=== PATIENT | female | born 1940 | race Caucasian/White ===

== ENCOUNTER 2016-08-19 18:10 | Inpatient (IN) | payer MEDICARE, MEDICAID ==
[2016-08-19] MEDS ORDERED: Sodium Chloride 0.9% 1,000 ML IV SCH ×2 (19:30→22:00)
--- NOTE | 2016-08-19 21:02 | EDM.PDOC ---
ED HPI GENERAL MEDICAL PROBLEM - General Chief Complaint: General Stated Complaint: FELL; HIT HEAD Time Seen by Provider: 08/19/16 18:40 Source of Information: Reports: Patient, Family History Limitations: Reports: Altered Mental Status, Other (pt has been quite comnfused. ) - History of Present Illness INITIAL COMMENTS - FREE TEXT/NARRATIVE: pt arrived because she has had increased confusion. According to her she has fallen twice today. She has not eaten or drank today. Onset: Gradual Duration: Week(s): Location: Reports: Head, Other (pt hit the back of his head, ) Associated Symptoms: Reports: Other (pt has severe pain in the left leg. ) Left Lower Leg Pain Score (Numeric/FACES): 6 - Related Data Allergies Allergy/AdvReac Type Severity Reaction Status Date / Time atropine Allergy Severe dyspnea Verified 10/06/15 11:49 Penicillins Allergy Mild Rash Verified 10/06/15 11:49 clindamycin AdvReac Nausea and Verified 10/06/15 13:50 Vomiting erythromycin base AdvReac Nausea Verified 10/06/15 13:50 Home Meds: Home Meds Aspirin/Calcium Carbonate/Mag [Aspirin Buffered 325 mg Tab] 325 mg PO DAILY [History] Cholecalciferol (Vitamin D3) [Vitamin D] 4,000 unit PO DAILY 01/27/13 [History] Estrogens, Conjugated [Premarin Vaginal Crm] 2 gram VAG ASDIRECTED 01/27/13 [ History] Loperamide [Imodium] 2 mg PO QID PRN 01/27/13 [History] Omeprazole [Omeprazole] 20 mg PO BID 01/27/13 [History] Diltiazem [Dilacor XR] 120 mg PO DAILY 06/20/13 [History] Diphenoxylate HCl/Atropine [Lomotil Tablet] 1 each PO QID 06/20/13 [History] Betamethasone Dipropionate [Diprosone 0.05% Crm] 1 applic TOP DAILY 10/02/15 [ History] Calcipotriene [Dovonex 0.005% Crm] 1 applic TP DAILY 10/02/15 [History] Cyanocobalamin (Vitamin B-12) [Cyanocobalamin Injection] 1,000 mcg IM Q30D 10/01 [History] Lisinopril 15 mg PO DAILY 10/02/15 [History] Pediatric Multivit Comb No.76 [Flintstones Complete] 1 each PO DAILY 10/02/15 [ History] Acetaminophen/Pyrilam/Pamabrom [Pamprin Multi-Symptom] 1 each PO DAILY 08/19/16 [History] Baclofen 10 mg PO TID 08/19/16 [History] Past Medical History HEENT History: Reports: Allergic Rhinitis, Glaucoma, Impaired Vision Cardiovascular History: Reports: Hypertension, Other (See Below) Other Cardiovascular History: "enlarged heart" Respiratory History: Reports: Asthma, Bronchitis, Recurrent Gastrointestinal History: Reports: Bowel Obstruction, Cholelithiasis, Gastritis , GERD, GI Bleed, PUD Genitourinary History: Reports: UTI, Recurrent 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: Neurological History: Reports: Concussion, Migraines Endocrine/Metabolic History: Reports: Vitamin D Deficiency Hematologic History: Reports: B12 Deficiency, Iron Deficiency, Other (See Below) Other Hematologic History: ferritin low Dermatologic History: Reports: Psoriasis, Other (See Below) Other Dermatologic History: right leg swells - Infectious Disease History Infectious Disease History: Reports: Chicken Pox, Influenza, Measles, Mumps, Pertussis (Whooping Cough), Scarlet Fever, Shingles - Past Surgical History Head Surgeries/Procedures: Reports: None HEENT Surgical History: Reports: Oral Surgery, Tonsillectomy GI Surgical History: Reports: Cholecystectomy, EGD, Small Bowel, Other (See Below) Neurological Surgical History: Reports: None Musculoskeletal Surgical History: Reports: Arthroscopic Procedure Social & Family History - Family History Family Medical History: Noncontributory - Tobacco Use Smoking Status *Q: Former Smoker Years of Tobacco use: 0 Packs/Tins Daily: 0 Used Tobacco, but Quit: No Month Tobacco Last Used: 09/2015 Second Hand Smoke Exposure: No - Caffeine Use Caffeine Use: Reports: Coffee - Alcohol Use Days Per Week of Alcohol Use: 0 - Recreational Drug Use Recreational Drug Use: No ED ROS GENERAL - Review of Systems Review Of Systems: See Below Constitutional: Reports: No Symptoms HEENT: Reports: No Symptoms Respiratory: Reports: No Symptoms Cardiovascular: Reports: No Symptoms Endocrine: Reports: No Symptoms GI/Abdominal: Reports: No Symptoms : Reports: No Symptoms, Other (pt has not been eating and drinking normally. ) Musculoskeletal: Reports: Other (pain in the left knee. ) Skin: Reports: No Symptoms ED EXAM, GENERAL - Physical Exam Exam: See Below Free Text/Narrative:: pt is confused and does not appear to be safe at home. She has fallen twice today at the apartment. She lives alone and her family does not feel she is safe at home. She states she is having alot of pain in the left knee area. She feels like this is what i making her fall. She has not been eating or drinking normally. Exam Limited By: No Limitations General Appearance: Alert, Mild Distress Ears: Normal TMs Nose: Normal Inspection Throat/Mouth: Normal Inspection Head: Atraumatic Neck: Normal Inspection Respiratory/Chest: No Respiratory Distress Cardiovascular: Regular Rate, Rhythm GI/Abdominal: Soft, Non-Tender (Female) Exam: Deferred Rectal (Female) Exam: Deferred Back Exam: Normal Inspection Extremities: Normal Inspection Neurological: Alert, Oriented, Normal Cognition Psychiatric: Anxious Course - Vital Signs Last Recorded V/S: Last Vital Signs Temp 36.5 C 08/19/16 18:46 Pulse 71 08/19/16 18:46 Resp 14 08/19/16 18:46 BP 175/97 H 08/19/16 18:46 Pulse Ox 96 08/19/16 18:46 - Orders/Labs/Meds Orders: Active Orders 24 hr Category Date Time Status Head wo Cont [CT] Stat Exams 08/19/16 19:21 Taken Sodium Chloride 0.9% [Normal Saline] 1,000 ml Med 08/19/16 19:30 Active IV ASDIRECTED Sodium Chloride 0.9% [Normal Saline] 1,000 ml Med 08/19/16 22:00 Ordered IV ASDIRECTED Medication Orders Sodium Chloride (Normal Saline) 1,000 mls @ 999 mls/hr IV ASDIRECTED DELICIA Last Admin: 08/19/16 19:59 Dose: 999 mls/hr Sodium Chloride (Normal Saline) 1,000 mls @ 999 mls/hr IV ASDIRECTED DELICIA Labs: Laboratory Tests 08/19/16 08/19/16 08/19/16 Range/Units 18:39 18:39 19:23 WBC 9.8 (4.5-11.0) K/uL RBC 5.36 (3.30-5.50) M/uL Hgb 16.9 H (12.0-15.0) g/dL Hct 48.0 (36.0-48.0) % MCV 90 (80-98) fL MCH 32 H (27-31) pg MCHC 35 (32-36) % Plt Count 237 (150-400) K/uL Neut % (Auto) 57 (36-66) % Lymph % (Auto) 28 (24-44) % [place] % (Auto) 10 H (2-6) % Eos % (Auto) 3 (2-4) % Baso % (Auto) 2 H (0-1) % Sodium 138 L (140-148) mmol/L Potassium 4.3 (3.6-5.2) mmol/L Chloride 104 (100-108) mmol/L Carbon Dioxide 23 (21-32) mmol/L Anion Gap 15.3 H (5.0-14.0) mmol/L BUN 31 H D (7-18) mg/dL Creatinine 1.0 (0.6-1.0) mg/dL Est Cr Clr Drug Dosing 40.81 mL/min Estimated GFR (MDRD) 54 L (>60) Glucose 95 (74-106) mg/dL Calcium 8.8 (8.5-10.1) mg/dL Total Bilirubin 0.7 D (0.2-1.0) mg/dL AST 55 H D (15-37) U/L ALT 29 (12-78) U/L Alkaline Phosphatase 98 (46-116) U/L Total Protein 7.3 (6.4-8.2) g/dL Albumin 4.0 (3.4-5.0) g/dL Globulin 3.3 (2.3-3.5) g/dL Albumin/Globulin Ratio 1.2 (1.2-2.2) Urine Color Urine Appearance Urine pH (4.5-8.0) Ur Specific Belk (1.008-1.030) Urine Protein (NEGATIVE) mg/dL Urine Glucose (UA) (NEGATIVE) mg/dL Urine Ketones (NEGATIVE) mg/dL Urine Occult Blood (NEGATIVE) Urine Nitrite (NEGATIVE) Urine Bilirubin (NEGATIVE) Urine Urobilinogen (NORMAL) mg/dL Ur Leukocyte Esterase (NEGATIVE) Urine RBC (0-5) Urine WBC (0-5) Ur Epithelial Cells Amorphous Sediment Urine Bacteria Urine Mucus Urine Other Phenytoin 0.3 L (10.0-20.0) ug/mL 06/14/17 Range/Units 21:05 WBC (4.5-11.0) K/uL RBC (3.30-5.50) M/uL Hgb (12.0-15.0) g/dL Hct (36.0-48.0) % MCV (80-98) fL MCH (27-31) pg MCHC (32-36) % Plt Count (150-400) K/uL Neut % (Auto) (36-66) % Lymph % (Auto) (24-44) % Bradley % (Auto) (2-6) % Eos % (Auto) (2-4) % Baso % (Auto) (0-1) % Sodium (140-148) mmol/L Potassium (3.6-5.2) mmol/L Chloride (100-108) mmol/L Carbon Dioxide (21-32) mmol/L Anion Gap (5.0-14.0) mmol/L BUN (7-18) mg/dL Creatinine (0.6-1.0) mg/dL Est Cr Clr Drug Dosing mL/min Estimated GFR (MDRD) (>60) Glucose (74-106) mg/dL Calcium (8.5-10.1) mg/dL Total Bilirubin (0.2-1.0) mg/dL AST (15-37) U/L ALT (12-78) U/L Alkaline Phosphatase (46-116) U/L Total Protein (6.4-8.2) g/dL Albumin (3.4-5.0) g/dL Globulin (2.3-3.5) g/dL Albumin/Globulin Ratio (1.2-2.2) Urine Color Yellow Urine Appearance Slightly cloudy Urine pH 5.0 (4.5-8.0) Ur Specific [place] 1.020 (1.008-1.030) Urine Protein Negative (NEGATIVE) mg/dL Urine Glucose (UA) Normal (NEGATIVE) mg/dL Urine Ketones Negative (NEGATIVE) mg/dL Urine Occult Blood Negative (NEGATIVE) Urine Nitrite Negative (NEGATIVE) Urine Bilirubin Negative (NEGATIVE) Urine Urobilinogen Normal (NORMAL) mg/dL Ur Leukocyte Esterase Moderate (NEGATIVE) Urine RBC 0-5 (0-5) Urine WBC 5-10 H (0-5) Ur Epithelial Cells Few Amorphous Sediment Not seen Urine Bacteria Moderate Urine Mucus Few Urine Other Phenytoin (10.0-20.0) ug/mL Meds: Medications Generic Name Dose Route Start Last Admin Trade Name Abraham PRN Reason Stop Dose Admin Sodium Chloride 1,000 mls @ 999 mls/hr 08/19/16 19:30 08/19/16 19:59 Normal Saline IV 999 mls/hr ASDIRECTED DELICIA Administration Sodium Chloride 1,000 mls @ 999 mls/hr 08/19/16 22:00 Normal Saline IV ASDIRECTED DELICIA - Re-Assessments/Exams Free Text/Narrative Re-Assessment/Exam: 08/19/16 22:00 pt had a cat scan of the head which was neg. She is dehydrated, Her urine looks infected. She continues not to make sense. Departure - Departure Time of Disposition: 22:02 Disposition: Admitted As Inpatient 68 Condition: Fair Clinical Impression: Confusion, Falling, Dehydration, UTI (urinary tract infection) - Discharge Information Forms: ED Department Discharge Care Plan Goals: admit to [facility] - My Orders Last 24 Hours: My Active Orders 08/19/16 19:21 Head wo Cont [CT] Stat 08/19/16 19:30 Sodium Chloride 0.9% [Normal Saline] 1,000 ml IV ASDIRECTED 08/19/16 22:00 Sodium Chloride 0.9% [Normal Saline] 1,000 ml IV ASDIRECTED - Assessment/Plan Last 24 Hours: My Active Orders 08/19/16 19:21 Head wo Cont [CT] Stat 08/19/16 19:30 Sodium Chloride 0.9% [Normal Saline] 1,000 ml IV ASDIRECTED 08/19/16 22:00 Sodium Chloride 0.9% [Normal Saline] 1,000 ml IV ASDIRECTED
[2016-08-20] MEDS ORDERED: cefTRIAXone 1 GM in Sodium Chloride 0.9% 50 ML IV SCH ×2
[2016-08-20] MEDS ORDERED: Docusate Sodium 100 MG Cap PO PRN (00:20)
[2016-08-20] MEDS ORDERED: Ondansetron 4 MG/2 ML SDV IV PRN (00:20)
[2016-08-20] MEDS ORDERED: Morphine 2 MG/ML Syringe IVPUSH PRN (00:20)
[2016-08-20] MEDS ORDERED: Zolpidem 5 MG Tab PO PRN (00:20)
[2016-08-20] MEDS ORDERED: oxyCODONE 5 MG Tab PO PRN (00:20)
[2016-08-20] MEDS ORDERED: Ondansetron 4 MG Tab.DIS PO PRN (00:20)
[2016-08-20] MEDS ORDERED: Acetaminophen 325 MG Tab PO PRN (00:20)
[2016-08-20] MEDS ORDERED: Albuterol 0.083% 2.5 MG/3 ML Neb Soln NEB PRN (00:20)
[2016-08-20] MEDS ORDERED: LORazepam 2 MG/ML MDV IV PRN (00:20)
[2016-08-20] MEDS: Sodium Chloride 0.9% 1,000 ML IV SCH ×2 (01:09→09:35)
[2016-08-20] MEDS ORDERED: Diltiazem 120 MG Cap.CD PO ONE (01:35)
--- NOTE | 2016-08-20 08:01 | PCM.HP ---
H&P History of Present Illness - General Date of Service: 08/19/16 Admit Problem/Dx: Admission Diagnosis/Problem Admission Diagnosis/Problem Dehydration Source of Information: Patient History Limitations: Reports: Altered Mental Status - History of Present Illness Initial Comments - Free Text/Narative: pt arrived because she has had increased confusion. According to her she has fallen twice today. She has not eaten or drank today. Onset: Gradual Duration: Week(s): Location: Reports: Head, Other (pt hit the back of his head, ) Associated Symptoms: Reports: Other (pt has severe pain in the left leg. ) Left Lower Leg Pain Score (Numeric/FACES): 6 pt had a cat scan of the head which was neg. She is dehydrated, Her urine looks infected. She continues not to make sense. pt is confused and does not appear to be safe at home. She has fallen twice today at the apartment. She lives alone and her family does not feel she is safe at home. She states she is having alot of pain in the left knee area. She feels like this is what i making her fall. She has not been eating or drinking normally. Exam Limited By: No Limitations General Appearance: Alert, Mild Distress plan to admit for further care. Onset of Symptoms: Reports: Gradual Duration of Symptoms: Reports: Day(s): Location: Reports: Generalized Improves with: Reports: None Worsens with: Reports: None Associated Symptoms: Reports: Confusion, Nausea/Vomiting, Weakness Left Lower Leg Pain Score (Numeric/FACES): 3 - Related Data Allergies/Adverse Reactions: Allergies Allergy/AdvReac Type Severity Reaction Status Date / Time atropine Allergy Severe dyspnea Verified 10/06/15 11:49 Penicillins Allergy Mild Rash Verified 10/06/15 11:49 clindamycin AdvReac Nausea and Verified 10/06/15 13:50 Vomiting erythromycin base AdvReac Nausea Verified 10/06/15 13:50 Home Medications: Home Meds Aspirin/Calcium Carbonate/Mag [Aspirin Buffered 325 mg Tab] 325 mg PO DAILY [History] Cholecalciferol (Vitamin D3) [Vitamin D] 4,000 unit PO DAILY 01/27/13 [History] Estrogens, Conjugated [Premarin Vaginal Crm] 2 gram VAG ASDIRECTED 01/27/13 [ History] Loperamide [Imodium] 2 mg PO QID PRN 01/27/13 [History] Omeprazole [Omeprazole] 20 mg PO BID 01/27/13 [History] Diltiazem [Dilacor XR] 120 mg PO DAILY 06/20/13 [History] Diphenoxylate HCl/Atropine [Lomotil Tablet] 1 each PO QID 06/20/13 [History] Betamethasone Dipropionate [Diprosone 0.05% Crm] 1 applic TOP DAILY 10/02/15 [ History] Calcipotriene [Dovonex 0.005% Crm] 1 applic TP DAILY 10/02/15 [History] Cyanocobalamin (Vitamin B-12) [Cyanocobalamin Injection] 1,000 mcg IM Q30D 10/01 [History] Lisinopril 15 mg PO DAILY 10/02/15 [History] Pediatric Multivit Comb No.76 [Flintstones Complete] 1 each PO DAILY 10/02/15 [ History] Acetaminophen/Pyrilam/Pamabrom [Pamprin Multi-Symptom] 1 each PO DAILY 08/19/16 [History] Baclofen 10 mg PO TID 08/19/16 [History] Past Medical History HEENT History: Reports: Allergic Rhinitis, Glaucoma, Impaired Vision Cardiovascular History: Reports: Hypertension, Other (See Below) Other Cardiovascular History: "enlarged heart" Respiratory History: Reports: Asthma, Bronchitis, Recurrent Gastrointestinal History: Reports: Bowel Obstruction, Cholelithiasis, Gastritis , GERD, GI Bleed, PUD Genitourinary History: Reports: UTI, Recurrent 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: Neurological History: Reports: Concussion, Migraines Endocrine/Metabolic History: Reports: Vitamin D Deficiency Hematologic History: Reports: B12 Deficiency, Iron Deficiency, Other (See Below) Other Hematologic History: ferritin low Dermatologic History: Reports: Psoriasis, Other (See Below) Other Dermatologic History: right leg swells - Infectious Disease History Infectious Disease History: Reports: Chicken Pox, Influenza, Measles, Mumps, Pertussis (Whooping Cough), Scarlet Fever, Shingles - Past Surgical History Head Surgeries/Procedures: Reports: None HEENT Surgical History: Reports: Oral Surgery, Tonsillectomy GI Surgical History: Reports: Cholecystectomy, EGD, Small Bowel, Other (See Below) Neurological Surgical History: Reports: None Musculoskeletal Surgical History: Reports: Arthroscopic Procedure Social & Family History - Family History Family Medical History: Noncontributory - Tobacco Use Smoking Status *Q: Former Smoker Years of Tobacco use: 0 Packs/Tins Daily: 0 Used Tobacco, but Quit: No Month Tobacco Last Used: 09/2015 Second Hand Smoke Exposure: No - Caffeine Use Caffeine Use: Reports: Coffee - Alcohol Use Days Per Week of Alcohol Use: 0 - Recreational Drug Use Recreational Drug Use: No H&P Review of Systems - Review of Systems: Review Of Systems: See Below Free Text/Narrative: Mrs. Anderson given history, but it off topics and rambling. very agitated and restless. General: Reports: Other (multi complaints; head, abdomen, left leg, skin, nails , lack of eating.) HEENT: Reports: Other (dry mouth) Pulmonary: Reports: No Symptoms Cardiovascular: Reports: No Symptoms Gastrointestinal: Reports: Abdominal Pain, Constipation, Diarrhea, Decreased Appetite, Difficulty Swallowing (due to dry mouth), Nausea Genitourinary: Reports: No Symptoms Musculoskeletal: Reports: Leg Pain (left leg pain for months) Skin: Reports: Dryness, Change in Hair/Nails Psychiatric: Reports: Confusion, Anxiety, Agitation Neurological: Reports: Confusion Hematologic/Lymphatic: Reports: No Symptoms Immunologic: Reports: No Symptoms Exam - Exam Exam: See Below - Vital Signs Vital Signs: Last Vital Signs Temp 36.7 C 08/20/16 05:37 Pulse 66 08/20/16 05:37 Resp 16 08/20/16 05:37 BP 127/90 08/20/16 05:37 Pulse Ox 95 08/20/16 05:37 Weight: 55.849 kg - Exam General: Cooperative, Moderate Distress (confusion), Other (Mrs. Anderson is noted to be alert, confused, agitation, rambling topics) HEENT: PERRLA, Conjunctiva Clear, EACs Clear, EOMI, Hearing Intact, Mucosa Moist & Biehle, Nares Patent, Posterior Pharynx Clear, Pupils Equal, Pupils Reactive, TMs Clear, Other (natural teeth present) Neck: Supple, Trachea Midline Lungs: Clear to Auscultation, Normal Respiratory Effort Cardiovascular: Regular Rate, Regular Rhythm, Normal S1, Normal S2 Abdomen: Normal Bowel Sounds, Tenderness (low pelvis) (Female) Exam: Deferred Rectal (Female) Exam: Deferred Back Exam: Normal Inspection, Full Range of Motion Extremities: Normal Inspection, Normal Pulses. No: Calf Tenderness, Edema Peripheral Pulses: 2+: Radial (L), Radial (R) Neurological: Reflexes Equal Bilateral, Strength Equal Bilateral Neuro Extensive - Mental Status: Alert (rambling topics, restless), Other Neuro Extensive - Motor, Sensory, Reflexes: Normal Gait, Normal Reflexes Psychiatric: Alert, Anxious, Agitated - Patient Data Lab Results Last 24 hrs: Laboratory Results - last 24 hr 08/20/16 08/20/16 Range/Units 05:00 05:00 WBC 7.4 (4.5-11.0) K/uL RBC 4.84 (3.30-5.50) M/uL Hgb 15.4 H (12.0-15.0) g/dL Hct 43.3 (36.0-48.0) % MCV 90 (80-98) fL MCH 32 H (27-31) pg MCHC 36 (32-36) % Plt Count 188 (150-400) K/uL Neut % (Auto) 54 (36-66) % Lymph % (Auto) 30 (24-44) % [place] % (Auto) 10 H (2-6) % Eos % (Auto) 5 H (2-4) % Baso % (Auto) 2 H (0-1) % Sodium 143 (140-148) mmol/L Potassium 3.5 L (3.6-5.2) mmol/L Chloride 111 H (100-108) mmol/L Carbon Dioxide 23 (21-32) mmol/L Anion Gap 12.5 (5.0-14.0) mmol/L BUN 17 (7-18) mg/dL Creatinine 0.6 (0.6-1.0) mg/dL Est Cr Clr Drug Dosing 71.03 mL/min Estimated GFR (MDRD) > 60 (>60) Glucose 79 (74-106) mg/dL Calcium 8.0 L (8.5-10.1) mg/dL Result Diagrams: 08/20/16 05:00 08/20/16 05:00 *Q Meaningful Use (ADM) - VTE *Q VTE Criteria *Q: - Stroke *Q Stroke Criteria *Q: - AMI *Q AMI Criteria *Q: - Problem List (1) Confusion SNOMED Code(s): 481791540 ICD Code: R41.0 - DISORIENTATION, UNSPECIFIED Status: Acute Priority: High Current Visit: Yes (2) Dehydration SNOMED Code(s): 19791810 ICD Code: E86.0 - DEHYDRATION Status: Acute Priority: High Current Visit: Yes (3) UTI (urinary tract infection) SNOMED Code(s): 24907434 ICD Code: N39.0 - URINARY TRACT INFECTION, SITE NOT SPECIFIED Status: Acute Priority: High Current Visit: Yes Qualifiers: Urinary tract infection type: site unspecified Hematuria presence: without hematuria Qualified Code(s): N39.0 - Urinary tract infection, site not specified (4) Hypertension SNOMED Code(s): 57037238 ICD Code: I10 - ESSENTIAL (PRIMARY) HYPERTENSION Status: Chronic Current Visit: No Qualifiers: Hypertension type: essential hypertension Qualified Code(s): I10 - Essential (primary) hypertension Problem List Initiated/Reviewed/Updated: Yes Orders Last 24hrs: Active Orders 24 hr Category Date Time Status Patient Status [ADT] Routine ADT 08/20/16 00:20 Active Bedrest Bathroom Privileges [RC] ASDIRECTED Care 08/20/16 00:20 Active Intake and Output [RC] QSHIFT Care 08/20/16 00:20 Active Notify Provider Vital Signs [RC] ASDIRECTED Care 08/20/16 00:20 Active Oxygen Therapy [RC] PRN Care 08/20/16 00:20 Active RT Aerosol Therapy [RC] ASDIRECTED Care 08/20/16 00:20 Active VTE/DVT Education [RC] Per Unit Routine Care 08/20/16 00:20 Active Vital Signs [RC] Q4H Care 08/20/16 00:20 Active OT Evaluation and Treatment [CONS] Routine Cons 08/20/16 00:20 Active PT Evaluation and Treatment [CONS] Routine Cons 08/20/16 00:20 Active Regular Diet [DIET] Diet 08/20/16 Breakfast Active Acetaminophen [Tylenol] Med 08/20/16 00:20 Active 650 mg PO Q4H PRN Albuterol [Proventil Neb Soln] Med 08/20/16 00:20 Active 2.5 mg NEB Q4H PRN Baclofen [Lioresal] Med 08/20/16 09:00 Active 10 mg PO TID Diltiazem [Cardizem CD] Med 08/20/16 09:00 Active 120 mg PO DAILY Docusate Sodium [Colace] Med 08/20/16 00:20 Active 100 mg PO BID PRN Ibuprofen [Motrin] Med 08/20/16 00:20 Active 400 mg PO Q6H PRN LORazepam [Ativan] Med 08/20/16 00:20 Active See Dose Instructions IV Q4H PRN Lisinopril [Prinivil] Med 08/20/16 09:00 Active 15 mg PO DAILY Morphine Med 08/20/16 00:20 Active 2 mg IVPUSH Q2H PRN Ondansetron [Zofran ODT] Med 08/20/16 00:20 Active 4 mg PO Q6H PRN Ondansetron [Zofran] Med 08/20/16 00:20 Active 4 mg IV Q4H PRN Pantoprazole [ProTONIX IV] Med 08/20/16 09:00 Active 40 mg IVPUSH DAILY Sodium Chloride 0.9% [Normal Saline] 1,000 ml Med 08/20/16 00:20 Active IV ASDIRECTED Zolpidem [Ambien] Med 08/20/16 00:20 Active 5 mg PO BEDTIME PRN cefTRIAXone [Rocephin] 1 gm Med 08/20/16 00:00 Active Sodium Chloride 0.9% [Normal Saline] 50 ml IV Q24H oxyCODONE Med 08/20/16 00:20 Active 5 mg PO Q4H PRN Sequential Compression Device [OM.PC] Per Unit Routine Oth 08/20/16 00:20 Ordered Resuscitation Status Routine Resus Stat 08/20/16 00:02 Ordered Medication Orders Acetaminophen (Tylenol) 650 mg PO Q4H PRN PRN Reason: Pain (Mild 1-3)/fever Albuterol (Proventil Neb Soln) 2.5 mg NEB Q4H PRN PRN Reason: Shortness Of Breath/wheezing Baclofen (Lioresal) 10 mg PO TID DELICIA Diltiazem HCl (Cardizem Cd) 120 mg PO DAILY DELICIA Docusate Sodium (Colace) 100 mg PO BID PRN PRN Reason: Constipation Sodium Chloride (Normal Saline) 1,000 mls @ 125 mls/hr IV ASDIRECTED DELICIA Last Admin: 08/20/16 01:09 Dose: 125 mls/hr Ceftriaxone Sodium 1 gm/ (Sodium Chloride) 50 mls @ 100 mls/hr IV Q24H [facility] Last Admin: 08/20/16 01:10 Dose: 100 mls/hr Ibuprofen (Motrin) 400 mg PO Q6H PRN PRN Reason: Pain (mild 1-3) Lisinopril 10 mg/ Lisinopril 5 (mg) 15 mg PO DAILY DELICIA Lorazepam (Ativan) 0 mg IV Q4H PRN PRN Reason: Agitation Morphine Sulfate (Morphine) 2 mg IVPUSH Q2H PRN PRN Reason: Pain (severe 7-10) Ondansetron HCl (Zofran Odt) 4 mg PO Q6H PRN PRN Reason: Nausea able to take PO Ondansetron HCl (Zofran) 4 mg IV Q4H PRN PRN Reason: Nausea/Vomiting Oxycodone HCl (Oxycodone) 5 mg PO Q4H PRN PRN Reason: Pain (moderate 4-6) Pantoprazole Sodium (Protonix Iv) 40 mg IVPUSH DAILY [facility] Zolpidem Tartrate (Ambien) 5 mg PO BEDTIME PRN PRN Reason: Sleep Assessment/Plan Comment:: ASSESSMENT / PLAN -This is a 76 year old female present to ER with friends who report concerns of confusion, report "she just not right, worried for her". Mrs Anderson reports had not been feeling well for a long time, she doesn't feel like eating anymore and hasn't ate or drank anything today. In ER she had labs; which show UTI, dehydration , Head CT is negative. She was given IV fluids, but she continues to be confused, rambling topics, anxious and agitation. ER MD recommends Hospital admission for IV fluids, medication and monitor to evaluate if confusion resolves. Plan Urinary Tract Infection with confusion, dehydration -Admit to [address] [place] [address] for further monitoring -IV Fluids for rehydration NS at 125 mL per hour -IV Antibiotic; Rocephin 1 Gram every 24 hours -medication order for Ativan 0.5 to 1 mg IV prn agitation -Advise to notify nurses of any chest pain or other symptoms -blood cultures x2 pending -And a.m. labs: CBC, BMP, lactic acid Hypertension -elevated blood pressure on admission, advise to give Cardizem 120mg po now -continue blood pressure in am as scheduled. Maintenance issues -Orders home meds: -Nutrition: Regular diet -Jay catheter not indicated at this time -DVT: SCD -PPI; IV Protonix 40mg daily CODE STATUS: Full Admission status: Admit to [address] [place] [address] Admission justification. This patient will be admitted for inpatient services and is medically appropriate meeting medical necessity for inpatient admission as outlined in my documentation. I reasonably expect the patient will require inpatient services that span. Time over 2 midnights. I reasonably expect this patient to be discharged or transferred within 96 hours after [facility]. Disposition; home Primary care provider: Dr. Campbell Hospitalist: Dr. Marquez
[2016-08-20] MEDS: Diltiazem 120 MG Cap.CD PO SCH ×2 (08:30→13:40)
[2016-08-20] MEDS: Baclofen 10 MG Tab PO SCH ×4 (08:30→21:48)
[2016-08-20] MEDS ORDERED: Pantoprazole 40 MG Vial IVPUSH SCH (09:00)
[2016-08-20] MEDS ORDERED: Lisinopril 10 MG Tab PO SCH (09:00)
[2016-08-20] MEDS ORDERED: Potassium Chloride 20 MEQ Tab.ER PO ONE (09:15)
[2016-08-20] MEDS ORDERED: Haloperidol 1 MG Tab PO PRN (12:37)
--- NOTE | 2016-08-20 12:37 | PCM.PN ---
- General Info Date of Service: 08/20/16 Functional Status: Reports: tolerating diet, urinating - Review of Systems General: Reports: Weakness. Denies: Fever, Chills Pulmonary: Reports: no symptoms Cardiovascular: Reports: No Symptoms Gastrointestinal: Reports: No symptoms Genitourinary: Reports: no symptoms Systems Review Comment:: Ms. Anderson is a 76-year-old woman who was admitted through the emergency department last night with progressive weakness and confusion secondary to urinary tract infection. Since admission she has been afebrile and hemodynamically stable with no evidence of underlying sepsis. She is somewhat confused I suspect at baseline does have some underlying dementia. - Patient Data Vitals - most recent: Last Vital Signs Temp 98.2 F 08/20/16 11:39 Pulse 79 08/20/16 11:39 Resp 16 08/20/16 11:39 BP 142/87 H 08/20/16 11:39 Pulse Ox 95 08/20/16 11:39 Weight - most recent: 123 lb 2 oz I&O - last 24 hours: Intake & Output 08/19/16 08/20/16 08/20/16 22:59 06:59 14:59 Intake Total 551 240 Output Total 675 1950 Balance -124 -1710 Lab Results last 24 hrs: Laboratory Results - last 24 hr 08/20/16 08/20/16 Range/Units 05:00 05:00 WBC 7.4 (4.5-11.0) K/uL RBC 4.84 (3.30-5.50) M/uL Hgb 15.4 H (12.0-15.0) g/dL Hct 43.3 (36.0-48.0) % MCV 90 (80-98) fL MCH 32 H (27-31) pg MCHC 36 (32-36) % Plt Count 188 (150-400) K/uL Neut % (Auto) 54 (36-66) % Lymph % (Auto) 30 (24-44) % Chaves % (Auto) 10 H (2-6) % Eos % (Auto) 5 H (2-4) % Baso % (Auto) 2 H (0-1) % Sodium 143 (140-148) mmol/L Potassium 3.5 L (3.6-5.2) mmol/L Chloride 111 H (100-108) mmol/L Carbon Dioxide 23 (21-32) mmol/L Anion Gap 12.5 (5.0-14.0) mmol/L BUN 17 (7-18) mg/dL Creatinine 0.6 (0.6-1.0) mg/dL Est Cr Clr Drug Dosing 71.03 mL/min Estimated GFR (MDRD) > 60 (>60) Glucose 79 (74-106) mg/dL Calcium 8.0 L (8.5-10.1) mg/dL Med Orders - Current: Current Medications Acetaminophen (Tylenol) 650 mg PO Q4H PRN PRN Reason: Pain (Mild 1-3)/fever Albuterol (Proventil Neb Soln) 2.5 mg NEB Q4H PRN PRN Reason: Shortness Of Breath/wheezing Baclofen (Lioresal) 10 mg PO TID [facility] Last Admin: 08/20/16 12:11 Dose: Not Given Clotrimazole (Clotrimazole 1%) 0 gm VAG BEDTIME [facility] Diltiazem HCl (Cardizem Cd) 120 mg PO DAILY [facility] Docusate Sodium (Colace) 100 mg PO BID PRN PRN Reason: Constipation Ceftriaxone Sodium 1 gm/ (Sodium Chloride) 50 mls @ 100 mls/hr IV Q24H [facility] Last Admin: 08/20/16 01:10 Dose: 100 mls/hr Ibuprofen (Motrin) 400 mg PO Q6H PRN PRN Reason: Pain (mild 1-3) Lisinopril 10 mg/ Lisinopril 5 (mg) 15 mg PO DAILY [facility] Lorazepam (Ativan) 0 mg IV Q4H PRN PRN Reason: Agitation Melatonin (Melatonin) 9 mg PO BEDTIME [facility] Morphine Sulfate (Morphine) 2 mg IVPUSH Q2H PRN PRN Reason: Pain (severe 7-10) Ondansetron HCl (Zofran Odt) 4 mg PO Q6H PRN PRN Reason: Nausea able to take PO Ondansetron HCl (Zofran) 4 mg IV Q4H PRN PRN Reason: Nausea/Vomiting Oxycodone HCl (Oxycodone) 5 mg PO Q4H PRN PRN Reason: Pain (moderate 4-6) Pantoprazole Sodium (Protonix) 40 mg PO ACBREAKFAST [facility] Zolpidem Tartrate (Ambien) 5 mg PO BEDTIME PRN PRN Reason: Sleep Discontinued Medications Diltiazem HCl (Cardizem Cd) 120 mg PO ONETIME ONE Stop: 08/20/16 01:36 Last Admin: 08/20/16 02:12 Dose: 120 mg Sodium Chloride (Normal Saline) 1,000 mls @ 999 mls/hr IV ASDIRECTED [facility] Last Admin: 08/19/16 19:59 Dose: 999 mls/hr Sodium Chloride (Normal Saline) 1,000 mls @ 999 mls/hr IV ASDIRECTED [facility] Last Admin: 08/19/16 22:51 Dose: 999 mls/hr Sodium Chloride (Normal Saline) 1,000 mls @ 125 mls/hr IV ASDIRECTED [facility] Last Admin: 08/20/16 09:35 Dose: 125 mls/hr Pantoprazole Sodium (Protonix Iv) 40 mg IVPUSH DAILY [facility] Last Admin: 08/20/16 08:31 Dose: 40 mg Potassium Chloride (Klor-Con M20) 40 meq PO ONETIME ONE Stop: 08/20/16 09:16 Last Admin: 08/20/16 09:36 Dose: 40 meq - Exam Quality Assessment: supplemental oxygen, DVT prophylaxis General: alert, cooperative, no acute distress Lungs: Clear to auscultation, Normal respiratory effort Cardiovascular: Regular Rate, Regular Rhythm, No Murmurs Abdomen: bowel sounds present, soft, no tenderness, no distension Extremities: no edema Skin: warm, dry, intact - Problem List Review Problem List Initiated/Reviewed/Updated: Yes - My Orders Last 24 Hours: My Active Orders 08/20/16 12:31 Convert IV to Saline Lock [OM.PC] Routine 08/20/16 21:00 Clotrimazole [Clotrimazole 1%] See Dose Instructions VAG BEDTIME Melatonin 9 mg PO BEDTIME 08/21/16 05:00 BASIC METABOLIC PANEL,BMP [CHEM] Timed 08/21/16 07:30 Pantoprazole [ProTONIX] 40 mg PO ACBREAKFAST - Plan Plan:: ASSESSMENT / PLAN Confusion-history of increased confusion over the past week likely secondary to her underlying urinary tract infection, question as to whether she may have some baseline dementia. -Discontinue lorazepam -Melatonin 9 mg by mouth daily at bedtime -Depakote 250 mg by mouth twice a day -Haldol 1 mg by mouth every 2 hours as needed for agitation Urinary Tract Infection with confusion, dehydration -Saline lock IV -IV Antibiotic; Rocephin 1 Gram every 24 hours -Advise to notify nurses of any chest pain or other symptoms -blood cultures x2 pending -And a.m. labs: CBC, BMP, lactic acid -Physical therapy and occupational therapy consults Hypertension-blood pressure stable since admission -Continue to monitor during hospital stay Maintenance issues -Orders home meds: -Nutrition: Regular diet -Jay catheter not indicated at this time -DVT: SCD -PPI; not required CODE STATUS: Full Admission status: Admit to [address] [place] [address] Admission justification. This patient will be admitted for inpatient services and is medically appropriate meeting medical necessity for inpatient admission as outlined in my documentation. I reasonably expect the patient will require inpatient services that span. Time over 2 midnights. I reasonably expect this patient to be discharged or transferred within 96 hours after admission to the [facility]. Disposition; home Primary care provider: Dr. Campbell Hospitalist: Dr. Marquez
[2016-08-20] MEDS ORDERED: Diltiazem 120 MG Cap.CD PO SCH (13:19)
[2016-08-20] MEDS: Lisinopril 10 MG Tab PO SCH ×2 (13:37→21:48)
[2016-08-20] MEDS: Diltiazem IR 30 MG Tab PO SCH ×2 (13:53→21:48)
[2016-08-20] MEDS: Divalproex Sodium Delayed-Release 250 MG Tab.CR PO SCH (16:31)
[2016-08-20] MEDS ORDERED: cefTRIAXone 1 GM, Lidocaine 1% 2.1 ML IM ONE ×2 (21:00)
[2016-08-20] MEDS: Melatonin 3 MG Tab PO SCH (21:48)
[2016-08-20] MEDS: Clotrimazole 1% Vaginal Crm 45 GM Tube VAG SCH (21:48)
[2016-08-21] MEDS ORDERED: cefTRIAXone 1 GM Vial IM ONE
[2016-08-21] MEDS: Diltiazem IR 30 MG Tab PO SCH ×4 (02:32→20:13)
[2016-08-21] MEDS ORDERED: Pantoprazole 40 MG Tab.CR PO SCH (07:30)
[2016-08-21] MEDS: Divalproex Sodium Delayed-Release 250 MG Tab.CR PO SCH ×2 (07:52→16:20)
[2016-08-21] MEDS: Ibuprofen 400 MG Tab PO PRN (09:11)
[2016-08-21] MEDS: Lisinopril 10 MG Tab PO SCH ×2 (09:12→20:16)
[2016-08-21] MEDS: Baclofen 10 MG Tab PO SCH ×3 (09:13→20:15)
--- NOTE | 2016-08-21 18:13 | PCM.PN ---
- General Info Date of Service: 08/21/16 Functional Status: Reports: tolerating diet, ambulating, urinating - Review of Systems General: Reports: Weakness. Denies: Fever, Chills Pulmonary: Reports: no symptoms Cardiovascular: Reports: No Symptoms Gastrointestinal: Reports: No symptoms Systems Review Comment:: This patient has been stable since yesterday although she does remain mildly confused at times. Vital signs have been good and she has been afebrile. Urine culture growing out mixed ab so antibiotic therapy will be discontinued. - Patient Data Vitals - most recent: Last Vital Signs Temp 97.6 F 08/21/16 14:56 Pulse 65 08/21/16 14:56 Resp 16 08/21/16 14:56 BP 146/90 H 08/21/16 14:56 Pulse Ox 97 08/21/16 14:56 Weight - most recent: 123 lb 2 oz I&O - last 24 hours: Intake & Output 08/21/16 08/21/16 08/21/16 06:59 14:59 22:59 Intake Total 1080 1320 Output Total 450 Balance 630 1320 Lab Results last 24 hrs: Laboratory Results - last 24 hr 08/21/16 Range/Units 05:53 Sodium 143 (140-148) mmol/L Potassium 4.5 (3.6-5.2) mmol/L Chloride 108 (100-108) mmol/L Carbon Dioxide 24 (21-32) mmol/L Anion Gap 10.8 (5.0-14.0) mmol/L BUN 15 (7-18) mg/dL Creatinine 0.7 (0.6-1.0) mg/dL Est Cr Clr Drug Dosing 61.33 mL/min Estimated GFR (MDRD) > 60 (>60) Glucose 91 (74-106) mg/dL Calcium 8.7 (8.5-10.1) mg/dL Med Orders - Current: Current Medications Acetaminophen (Tylenol) 650 mg PO Q4H PRN PRN Reason: Pain (Mild 1-3)/fever Albuterol (Proventil Neb Soln) 2.5 mg NEB Q4H PRN PRN Reason: Shortness Of Breath/wheezing Baclofen (Lioresal) 10 mg PO TID [facility] Last Admin: 08/21/16 13:56 Dose: Not Given Clotrimazole (Clotrimazole 1%) 0 gm VAG BEDTIME [facility] Last Admin: 08/20/16 21:48 Dose: 1 applicful Diltiazem HCl (Cardizem) 30 mg PO Q6H [facility] Last Admin: 08/21/16 13:56 Dose: 30 mg Divalproex Sodium (Divalproex Sodium) 250 mg PO BIDMEALS [facility] Last Admin: 08/21/16 16:20 Dose: 250 mg Docusate Sodium (Colace) 100 mg PO BID PRN PRN Reason: Constipation Haloperidol (Haldol) 1 mg PO Q2H PRN PRN Reason: Agitation Ibuprofen (Motrin) 400 mg PO Q6H PRN PRN Reason: Pain (mild 1-3) Last Admin: 08/21/16 09:11 Dose: 400 mg Lisinopril (Prinivil) 10 mg PO BID [facility] Last Admin: 08/21/16 09:12 Dose: 10 mg Melatonin (Melatonin) 9 mg PO BEDTIME [facility] Last Admin: 08/20/16 21:48 Dose: 9 mg Morphine Sulfate (Morphine) 2 mg IVPUSH Q2H PRN PRN Reason: Pain (severe 7-10) Ondansetron HCl (Zofran Odt) 4 mg PO Q6H PRN PRN Reason: Nausea able to take PO Ondansetron HCl (Zofran) 4 mg IV Q4H PRN PRN Reason: Nausea/Vomiting Oxycodone HCl (Oxycodone) 5 mg PO Q4H PRN PRN Reason: Pain (moderate 4-6) Zolpidem Tartrate (Ambien) 5 mg PO BEDTIME PRN PRN Reason: Sleep Discontinued Medications Ceftriaxone Sodium 1 gm/ (Lidocaine HCl 2.1 ml) 0 gm IM ONETIME ONE Stop: 08/20/16 21:01 Last Admin: 08/20/16 22:01 Dose: 1 inj Diltiazem HCl (Cardizem Cd) 120 mg PO DAILY [facility] Last Admin: 08/20/16 13:40 Dose: Not Given Diltiazem HCl (Cardizem Cd) 120 mg PO ONETIME ONE Stop: 08/20/16 01:36 Last Admin: 08/20/16 02:12 Dose: 120 mg Diltiazem HCl (Cardizem Cd) 60 mg PO BID [facility] Sodium Chloride (Normal Saline) 1,000 mls @ 999 mls/hr IV ASDIRECTED [facility] Last Admin: 08/19/16 19:59 Dose: 999 mls/hr Sodium Chloride (Normal Saline) 1,000 mls @ 999 mls/hr IV ASDIRECTED [facility] Last Admin: 08/19/16 22:51 Dose: 999 mls/hr Sodium Chloride (Normal Saline) 1,000 mls @ 125 mls/hr IV ASDIRECTED [facility] Last Admin: 08/20/16 09:35 Dose: 125 mls/hr Ceftriaxone Sodium 1 gm/ (Sodium Chloride) 50 mls @ 100 mls/hr IV Q24H [facility] Last Admin: 08/20/16 01:10 Dose: 100 mls/hr Lisinopril 10 mg/ Lisinopril 5 (mg) 15 mg PO DAILY [facility] Last Admin: 08/20/16 13:40 Dose: Not Given Lorazepam (Ativan) 0 mg IV Q4H PRN PRN Reason: Agitation Pantoprazole Sodium (Protonix Iv) 40 mg IVPUSH DAILY [facility] Last Admin: 08/20/16 08:31 Dose: 40 mg Pantoprazole Sodium (Protonix) 40 mg PO ACBREAKFAST [facility] Potassium Chloride (Klor-Con M20) 40 meq PO ONETIME ONE Stop: 08/20/16 09:16 Last Admin: 08/20/16 09:36 Dose: 40 meq - Exam General: alert, oriented, cooperative, no acute distress Lungs: Clear to auscultation, Normal respiratory effort Cardiovascular: Regular Rate, Regular Rhythm Abdomen: bowel sounds present, soft, no tenderness, no distension Extremities: no edema Skin: warm, dry, intact - Problem List Review Problem List Initiated/Reviewed/Updated: Yes - My Orders Last 24 Hours: My Active Orders 08/20/16 21:00 Clotrimazole [Clotrimazole 1%] See Dose Instructions VAG BEDTIME Melatonin 9 mg PO BEDTIME - Plan Plan:: ASSESSMENT / PLAN Confusion-She remains intermittently and mildly confused, likely has mild underlying dementia -Discontinue lorazepam -Melatonin 9 mg by mouth daily at bedtime -Depakote 250 mg by mouth twice a day -Haldol 1 mg by mouth every 2 hours as needed for agitation Urinary colonization with no evidence of underlying infection -Saline lock IV -Discontinue antibiotic therapy Hypertension-blood pressure stable since admission -Continue to monitor during hospital stay Maintenance issues -Orders home meds: -Nutrition: Regular diet -Jay catheter not indicated at this time -DVT: SCD -PPI; not required CODE STATUS: Full Admission status: Admit to [address] [place] [address] Admission justification. This patient will be admitted for inpatient services and is medically appropriate meeting medical necessity for inpatient admission as outlined in my documentation. I reasonably expect the patient will require inpatient services that span. Time over 2 midnights. I reasonably expect this patient to be discharged or transferred within 96 hours after admission to the [facility]. Disposition; anticipate discharge to home in a.m. Primary care provider: Dr. Campbell Hospitalist: Dr. Marquez
[2016-08-21] MEDS: Melatonin 3 MG Tab PO SCH (20:15)
[2016-08-21] MEDS: Clotrimazole 1% Vaginal Crm 45 GM Tube VAG SCH (21:26)
[2016-08-22] MEDS: Diltiazem IR 30 MG Tab PO SCH ×2 (01:32→07:26)
[2016-08-22] MEDS: Ibuprofen 400 MG Tab PO PRN (01:32)
[2016-08-22] MEDS: Divalproex Sodium Delayed-Release 250 MG Tab.CR PO SCH (07:26)
[2016-08-22] MEDS: Baclofen 10 MG Tab PO SCH (09:29)
[2016-08-22] MEDS: Lisinopril 10 MG Tab PO SCH (09:29)
[2016-08-22 11:57] VITALS: BP 162/93
--- NOTE | 2016-08-22 12:16 | PCM.DCSUM1 ---
Discharge Summary - Hospital Course Brief History: Ms. Anderson is a 76-year-old woman was admitted through the emergency department because of recurrent falls, weakness, and confusion. - Discharge Data Discharge Date: 08/22/16 Discharge Disposition: Home, W Home Health Agency 06 Condition: Fair - Discharge Diagnosis/Problem(s) (1) Confusion SNOMED Code(s): 677824413 ICD Code: R41.0 - DISORIENTATION, UNSPECIFIED Status: Acute Priority: High Current Visit: Yes (2) Falling SNOMED Code(s): 706678574 ICD Code: R29.6 - REPEATED FALLS Status: Acute Current Visit: Yes (3) Dehydration SNOMED Code(s): 84428150 ICD Code: E86.0 - DEHYDRATION Status: Acute Priority: High Current Visit: Yes - Patient Summary/Data Consults: Consultations 08/20/16 00:20 OT Evaluation and Treatment [CONS] Routine Please Evaluate and Treat. OT Reason for Consult: Discharge Planning This query below is only for informational purposes and is not editable. PT Evaluation and Treatment [CONS] Routine Please Evaluate and Treat. PT Reason for Consult: Other (Type Response) left leg pain This query below is only for informational purposes and is not editable. Hospital Course: Ms. Anderson is a 76-year-old woman whose been living independently in an apartment. She was noted by friends to be more week with recent falls and increasing confusion. On evaluation the emergency department CT scan of the head was unremarkable. Laboratory studies showed no obvious metabolic abnormalities. There was some question of possible urinary tract infection and initially on admission was started on antibiotics. Urine culture returned growing only mixed ab and antibiotic therapy was discontinued. She appeared to have some underlying cognitive impairment, consistent with mild dementia. Discussion was held concerning options for ongoing care and management. Patient was offered residential placement which she has refused at the present time but will except home care with home physical therapy and occupational therapy. Dehydration resolved with IV fluids on admission, she showed adequate ability to drink and eat during the rest of her hospital stay and there were no further concerns about her nutrition or hydration. Activity will be as tolerated and she will resume her usual diet. Follow-up appointment will be scheduled with Dr. Campbell within 1 week. - Patient Instructions Diet: Usual Diet as Tolerated Activity: As Tolerated Other/Special Instructions: Please arrange for home care with home physical therapy and occupational therapy. Please schedule follow-up appointment with Dr. Campbell within 1 week. - Discharge Plan Home Medications: Home Meds Cholecalciferol (Vitamin D3) [Vitamin D3] 4,000 unit PO DAILY 01/27/13 [History] Estrogens, Conjugated [Premarin Vaginal Crm] 2 gram VAG ASDIRECTED 01/27/13 [ History] Loperamide [Imodium] 4 mg PO QID PRN 01/27/13 [History] Omeprazole 20 mg PO BID 01/27/13 [History] Diphenoxylate HCl/Atropine [Lomotil] 1 each PO QID PRN 06/20/13 [History] Betamethasone Dipropionate [Diprosone 0.05% Crm] 1 applic TOP DAILY 10/02/15 [ History] Calcipotriene [Dovonex 0.005% Crm] 1 applic TP DAILY 10/02/15 [History] Lisinopril 10 mg PO BID 10/02/15 [History] Pediatric Multivit Comb No.76 [Flintstones Complete] 1 each PO DAILY 10/02/15 [ History] Baclofen 10 mg PO TID 08/19/16 [History] Aspirin 325 mg PO DAILY 08/20/16 [History] Cyclobenzaprine [Flexeril] 10 mg PO TID 08/20/16 [History] Diltiazem [Cardizem SR] 60 mg PO BID 08/20/16 [History] Folic Acid 1 mg PO DAILY 08/20/16 [History] Furosemide 20 mg PO DAILY 08/20/16 [History] Referrals: Donis Campbell MD [Primary Care Provider] - - Patient Data Vitals - Most Recent: Last Vital Signs Temp 98.1 F 08/22/16 11:55 Pulse 86 08/22/16 11:55 Resp 16 08/22/16 11:55 BP 162/93 H 08/22/16 11:55 Pulse Ox 100 08/22/16 11:55 Weight - Most Recent: 123 lb 2 oz I&O - Last 24 hours: Intake & Output 08/21/16 08/22/16 08/22/16 22:59 06:59 14:59 Intake Total 480 240 Balance 480 240 Med Orders - Current: Current Medications Acetaminophen (Tylenol) 650 mg PO Q4H PRN PRN Reason: Pain (Mild 1-3)/fever Albuterol (Proventil Neb Soln) 2.5 mg NEB Q4H PRN PRN Reason: Shortness Of Breath/wheezing Baclofen (Lioresal) 10 mg PO TID [facility] Last Admin: 08/22/16 09:29 Dose: Not Given Clotrimazole (Clotrimazole 1%) 0 gm VAG BEDTIME [facility] Last Admin: 08/21/16 21:26 Dose: 1 applicful Diltiazem HCl (Cardizem) 30 mg PO Q6H [facility] Last Admin: 08/22/16 07:26 Dose: 30 mg Divalproex Sodium (Divalproex Sodium) 250 mg PO BIDMEALS [facility] Last Admin: 08/22/16 07:26 Dose: 250 mg Docusate Sodium (Colace) 100 mg PO BID PRN PRN Reason: Constipation Haloperidol (Haldol) 1 mg PO Q2H PRN PRN Reason: Agitation Ibuprofen (Motrin) 400 mg PO Q6H PRN PRN Reason: Pain (mild 1-3) Last Admin: 08/22/16 01:32 Dose: 400 mg Lisinopril (Prinivil) 10 mg PO BID [facility] Last Admin: 08/22/16 09:29 Dose: 10 mg Melatonin (Melatonin) 9 mg PO BEDTIME [facility] Last Admin: 08/21/16 20:15 Dose: 9 mg Morphine Sulfate (Morphine) 2 mg IVPUSH Q2H PRN PRN Reason: Pain (severe 7-10) Ondansetron HCl (Zofran Odt) 4 mg PO Q6H PRN PRN Reason: Nausea able to take PO Ondansetron HCl (Zofran) 4 mg IV Q4H PRN PRN Reason: Nausea/Vomiting Oxycodone HCl (Oxycodone) 5 mg PO Q4H PRN PRN Reason: Pain (moderate 4-6) Zolpidem Tartrate (Ambien) 5 mg PO BEDTIME PRN PRN Reason: Sleep Discontinued Medications Ceftriaxone Sodium 1 gm/ (Lidocaine HCl 2.1 ml) 0 gm IM ONETIME ONE Stop: 08/20/16 21:01 Last Admin: 08/20/16 22:01 Dose: 1 inj Diltiazem HCl (Cardizem Cd) 120 mg PO DAILY [facility] Last Admin: 08/20/16 13:40 Dose: Not Given Diltiazem HCl (Cardizem Cd) 120 mg PO ONETIME ONE Stop: 08/20/16 01:36 Last Admin: 08/20/16 02:12 Dose: 120 mg Diltiazem HCl (Cardizem Cd) 60 mg PO BID [facility] Sodium Chloride (Normal Saline) 1,000 mls @ 999 mls/hr IV ASDIRECTED [facility] Last Admin: 08/19/16 19:59 Dose: 999 mls/hr Sodium Chloride (Normal Saline) 1,000 mls @ 999 mls/hr IV ASDIRECTED [facility] Last Admin: 08/19/16 22:51 Dose: 999 mls/hr Sodium Chloride (Normal Saline) 1,000 mls @ 125 mls/hr IV ASDIRECTED [facility] Last Admin: 08/20/16 09:35 Dose: 125 mls/hr Ceftriaxone Sodium 1 gm/ (Sodium Chloride) 50 mls @ 100 mls/hr IV Q24H [facility] Last Admin: 08/20/16 01:10 Dose: 100 mls/hr Lisinopril 10 mg/ Lisinopril 5 (mg) 15 mg PO DAILY [facility] Last Admin: 08/20/16 13:40 Dose: Not Given Lorazepam (Ativan) 0 mg IV Q4H PRN PRN Reason: Agitation Pantoprazole Sodium (Protonix Iv) 40 mg IVPUSH DAILY [facility] Last Admin: 08/20/16 08:31 Dose: 40 mg Pantoprazole Sodium (Protonix) 40 mg PO ACBREAKFAST [facility] Potassium Chloride (Klor-Con M20) 40 meq PO ONETIME ONE Stop: 08/20/16 09:16 Last Admin: 08/20/16 09:36 Dose: 40 meq *Q Meaningful Use (DIS) - VTE *Q VTE Criteria *Q: - Stroke *Q Stroke Criteria *Q: - AMI *Q AMI Criteria *Q:
== END 2016-08-22 13:15 | disposition home health service (06) | DRG 690 ==
LOC: JP.ED 18:10 → JP.MS 08-20 00:01
PROVIDERS: ADMIT Hospitalist; ATTEND Hospitalist
DX: N39.0 Urinary tract infection, site not specified (principal); R41.0 Disorientation, unspecified; E86.0 Dehydration; Z79.82 Long term (current) use of aspirin; I10 Essential (primary) hypertension; K21.9 Gastro-esophageal reflux disease without esophagitis; E61.1 Iron deficiency; Z87.891 Personal history of nicotine dependence; L40.9 Psoriasis, unspecified; R29.6 Repeated falls; Z91.81 History of falling; F03.90 Unspecified dementia, unspecified severity, without behavioral disturbance, psychotic disturbance, mood disturbance, and anxiety; M79.605 Pain in left leg; W18.30XA Fall on same level, unspecified, initial encounter; Y92.009 Unspecified place in unspecified non-institutional (private) residence as the place of occurrence of the external cause; S09.90XA Unspecified injury of head, initial encounter; H40.9 Unspecified glaucoma; H54.7 Unspecified visual loss; Z87.440 Personal history of urinary (tract) infections; Z88.1 Allergy status to other antibiotic agents; Z88.0 Allergy status to penicillin; Z88.8 Allergy status to other drugs, medicaments and biological substances
CPT/HCPCS: 36415; 70450; 80053; 80185; 81001; 85025; 87086; 96360; 96361; 99285; J7040 ×2; 80048; 97116-GP; 97140-GP; 97162-GP; 97165-GO; 97530-GP; 97535-GP; 99284; A9270-GY; C9113; J0696; J2060; J7050

== ENCOUNTER 2022-02-06 16:49 | Emergency (ER) | payer MEDICARE, MEDICAID ==
[2022-02-06] MEDS ORDERED: Lactated Ringers 1,000 ML IV ONE (17:18)
[2022-02-06 18:19] LABS: ESTIMATED GFR 51 mL/min (>60); TROPONIN I HIGH SENSITIVITY 9.4 pg/mL (<=60.3)
[2022-02-06 18:55] VITALS: BP 145/92; PULSE 80
[2022-02-06 19:05] LABS: CORONAVIRUS COVID-19 NAA NEGATIVE (NEGATIVE)
== END 2022-02-06 18:54 | disposition home or self-care (01) ==
LOC: JP.ED 16:49
DX: R19.7 Diarrhea, unspecified (principal); T50.905A Adverse effect of unspecified drugs, medicaments and biological substances, initial encounter; I10 Essential (primary) hypertension; K21.9 Gastro-esophageal reflux disease without esophagitis; F17.210 Nicotine dependence, cigarettes, uncomplicated; Z88.0 Allergy status to penicillin; Z88.7 Allergy status to serum and vaccine; Z88.1 Allergy status to other antibiotic agents; Z88.8 Allergy status to other drugs, medicaments and biological substances; Z79.82 Long term (current) use of aspirin; Z79.899 Other long term (current) drug therapy; Z20.822 Contact with and (suspected) exposure to COVID-19
CPT/HCPCS: 0241U; 36415; 80053; 83690; 84484; 85025; 96360; 99284; J7120

== ENCOUNTER 2023-01-21 20:57 | Emergency (ER) | payer MEDICARE, MEDICAID ==
[2023-01-21 21:26] LABS: BASOPHILS ABSOLUTE AUTO 0.07 K/uL (0.00-0.10); BASOPHILS PERCENT AUTO 0.5 % (0.1-1.3); EOSINOPHILS ABSOLUTE AUTO 0.12 K/uL (0.00-0.40); EOSINOPHILS PERCENT AUTO 0.9 % (0.0-5.4); HEMATOCRIT 45.5 % (34.3-46.0); HEMOGLOBIN 15.7 g/dL (11.2-15.5); IMMATURE GRAN ABSOLUTE AUTO 0.06 K/uL (0.00-0.23); IMMATURE GRAN PERCENT AUTO 0.5 % (0.0-0.7); LYMPHOCYTES ABSOLUTE AUTO 0.95 K/uL (0.8-3.3); LYMPHOCYTES PERCENT AUTO 7.4 % (11.4-47.7); MEAN CORPUSCULAR HGB CONC 34.5 g/dL (31.6-35.5); MEAN CORPUSCULAR VOLUME 89.9 fL (81.4-99.0); MONOCYTES ABSOLUTE AUTO 0.42 K/uL (0.20-0.90); MONOCYTES PERCENT AUTO 3.3 % (3.3-12.6); NEUTROPHILS PERCENT AUTO 87.4 % (40.0-78.1); PLATELET COUNT,PLT 217 K/uL (130-375); RED BLOOD CELL COUNT 5.06 M/uL (3.77-5.24); WHITE BLOOD CELL COUNT,WBC 12.9 K/uL (3.2-11.0)
[2023-01-21 21:55] LABS: ALANINE AMINOTRANSFERASE,ALT 15 U/L (12-78); ALBUMIN 3.7 g/dL (3.4-5.0); ALKALINE PHOSPHATASE 123 U/L (46-116); ANION GAP 16.9 mmol/L (5.0-14.0); ASPARTATE AMNIOTRANSFERASE,AST 39 U/L (15-37); BILIRUBIN TOTAL 0.6 mg/dL (0.2-1.0); BLOOD UREA NITROGEN,BUN 16 mg/dL (7-18); C-REACTIVE PROTEIN 0.17 mg/dL (0.0-0.3); CALCIUM 8.3 mg/dL (8.5-10.1); CARBON DIOXIDE,CO2 23 mmol/L (21-32); CHLORIDE,CL 96 mmol/L (100-108); EST CRCL DRUG DOSING (CG) 32.13 mL/min; ESTIMATED GFR 57 mL/min (>60); GLUCOSE RANDOM 200 mg/dL (74-106); POTASSIUM,K 3.9 mmol/L (3.6-5.2); PROTEIN TOTAL,TP 7.3 g/dL (6.4-8.2); SODIUM,NA 132 mmol/L (140-148)
[2023-01-21 21:56] LABS: MAGNESIUM 1.7 mg/dL (1.8-2.4); TROPONIN I HIGH SENSITIVITY 15.1 pg/mL (<=60.3)
[2023-01-21] MEDS ORDERED: Sodium Chloride 0.9% 1,000 ML IV ONE (22:08)
[2023-01-21] MEDS ORDERED: Ondansetron 4 MG/2 ML SDV IVPUSH ONE (22:09)
[2023-01-21] MEDS ORDERED: Sodium Chloride 0.9% 50 ML IV ONE (22:11)
[2023-01-21] MEDS ORDERED: Sodium Chloride 0.9% 10 ML Syringe FLUSH ONE (22:11)
[2023-01-21] MEDS ORDERED: Iopamidol 612 MG/ML 100 ML Bottle IV ONE (22:11)
[2023-01-21 22:19] LABS: APPEARANCE,URINE CLEAR (CLEAR); BILIRUBIN,URINE NEGATIVE (NEGATIVE); COLOR,URINE YELLOW (YELLOW); GLUCOSE,URINE NEGATIVE (NEGATIVE); KETONES,URINE NEGATIVE (NEGATIVE); LEUKOCYTE ESTERASE,URINE NEGATIVE (NEGATIVE); NITRITE,URINE NEGATIVE (NEGATIVE); OCCULT BLOOD,URINE TRACE-INTACT (NEGATIVE); PROTEIN,URINE >=300 mg/dL (NEGATIVE); UROBILINOGEN,URINE 0.2 EU/dL (0.2-1.0)
[2023-01-21 22:24] LABS: AMORPHOUS SEDIMENT,URINE NOT SEEN; BACTERIA,URINE FEW; EPITHELIAL CELLS,URINE RARE; MUCUS,URINE NOT SEEN; RBC,URINE 0-5 (0-5); WBC,URINE NOT SEEN (0-5)
[2023-01-21] MEDS ORDERED: Magnesium Oxide 400 MG Tab PO ONE (22:29)
[2023-01-21] MEDS ORDERED: Labetalol 20 MG/4 ML Syringe IVPUSH ONE (22:48)
[2023-01-21 23:12] VITALS: PULSE 94
[2023-01-22 00:14] VITALS: BP 168/101
== END 2023-01-22 00:28 | disposition home or self-care (01) ==
LOC: JP.ED 20:57
DX: K52.9 Noninfective gastroenteritis and colitis, unspecified (principal); I10 Essential (primary) hypertension; K21.9 Gastro-esophageal reflux disease without esophagitis; F17.210 Nicotine dependence, cigarettes, uncomplicated; J45.909 Unspecified asthma, uncomplicated; Z86.16 Personal history of COVID-19; Z79.899 Other long term (current) drug therapy; Z79.82 Long term (current) use of aspirin; Z88.1 Allergy status to other antibiotic agents; Z88.7 Allergy status to serum and vaccine; Z88.8 Allergy status to other drugs, medicaments and biological substances; Z88.0 Allergy status to penicillin; Z88.5 Allergy status to narcotic agent; Z88.6 Allergy status to analgesic agent
CPT/HCPCS: 36415; 74177; 80053; 81001; 83605; 83690; 83735; 84484; 85025; 86140; 93005; 93010; 96361; 96374; 96375; 99284; 99284-25; A9270-GY; J2405; J3490; J7030; Q9967

== ENCOUNTER 2023-05-30 20:53 | Inpatient (IN) | payer MEDICARE, MEDICAID ==
[2023-05-30] MEDS: Sodium Chloride 0.9% 1,000 ML IV SCH (21:00)
[2023-05-30] MEDS ORDERED: Naloxone 0.4 MG/ML SDV IVPUSH PRN (21:16)
[2023-05-30] MEDS: Morphine 2 MG/ML SYRINGE IVPUSH ONE (21:26)
[2023-05-30 21:46] LABS: BASE EXCESS VENOUS -4.7 mm/L; BICARBONATE,VENOUS 20.6 mmol/L; CARBOXYHEMOGLOBIN 1.8 % (0.0-1.6); METHEMOGLOBIN 0.9 %; O2 SATURATION VENOUS 70.7; OXYHEMOGLOBIN 68.8 %; PCO2 VENOUS 40.4 mm/Hg; PH,VENOUS 7.327 (7.350-7.450); PO2 VENOUS 43.7 mm/Hg; TOTAL HEMOGLOBIN 17.2 g/dL (12.0-16.0)
[2023-05-30 21:52] LABS: BILIRUBIN,URINE SMALL (NEGATIVE); GLUCOSE,URINE 250 mg/dL (NEGATIVE); KETONES,URINE NEGATIVE (NEGATIVE); LEUKOCYTE ESTERASE,URINE NEGATIVE (NEGATIVE); NITRITE,URINE NEGATIVE (NEGATIVE); OCCULT BLOOD,URINE LARGE (NEGATIVE); PH,URINE 5.5 (5.0-8.0); PROTEIN,URINE >=300 mg/dL (NEGATIVE); UROBILINOGEN,URINE 0.2 EU/dL (0.2-1.0)
[2023-05-30 21:55] LABS: BASOPHILS ABSOLUTE AUTO 0.03 K/uL (0.00-0.10); BASOPHILS PERCENT AUTO 0.1 % (0.1-1.3); HEMATOCRIT 52.5 % (34.3-46.0); HEMOGLOBIN 17.9 g/dL (11.2-15.5); IMMATURE GRAN ABSOLUTE AUTO 0.17 K/uL (0.00-0.23); IMMATURE GRAN PERCENT AUTO 0.8 % (0.0-0.7); LYMPHOCYTES ABSOLUTE AUTO 1.08 K/uL (0.8-3.3); LYMPHOCYTES PERCENT AUTO 4.9 % (11.4-47.7); MEAN CORPUSCULAR HEMOGLOBIN 30.1 pg (31.6-35.5); MEAN CORPUSCULAR HGB CONC 34.1 g/dL (31.6-35.5); MEAN CORPUSCULAR VOLUME 88.2 fL (81.4-99.0); MONOCYTES ABSOLUTE AUTO 1.43 K/uL (0.20-0.90); MONOCYTES PERCENT AUTO 6.5 % (3.3-12.6); NEUTROPHILS ABSOLUTE AUTO 19.43 K/uL (1.0-7.6); NEUTROPHILS PERCENT AUTO 87.7 % (40.0-78.1); PLATELET COUNT,PLT 271 K/uL (130-375); RED BLOOD CELL COUNT 5.95 M/uL (3.77-5.24); WHITE BLOOD CELL COUNT,WBC 22.1 K/uL (3.2-11.0)
[2023-05-30 22:00] LABS: INR 1.2; PROTHROMBIN TIME 11.6 sec (9.2-10.6)
[2023-05-30 22:00] LABS: APPEARANCE,URINE SLIGHTLY CLOUDY (CLEAR)
[2023-05-30 22:01] LABS: AMORPHOUS SEDIMENT,URINE FEW; BACTERIA,URINE MODERATE; COLOR,URINE OTHER (YELLOW); EPITHELIAL CELLS,URINE FEW; MUCUS,URINE FEW; RBC,URINE 0-5 (0-5)
[2023-05-30 22:17] LABS: A/G RATIO 0.8 (1.2-2.2); ALANINE AMINOTRANSFERASE,ALT 51 U/L (12-78); ALBUMIN 3.4 g/dL (3.4-5.0); ALKALINE PHOSPHATASE 140 U/L (46-116); ASPARTATE AMNIOTRANSFERASE,AST 143 U/L (15-37); BILIRUBIN TOTAL 0.6 mg/dL (0.2-1.0); BLOOD UREA NITROGEN,BUN 72 mg/dL (7-18); C-REACTIVE PROTEIN 6.91 mg/dL (<0.50); CALCIUM 8.9 mg/dL (8.5-10.1); CARBON DIOXIDE,CO2 21 mmol/L (21-32); CHLORIDE,CL 102 mmol/L (100-108); ESTIMATED GFR 11 mL/min (>60); GLUCOSE RANDOM 156 mg/dL (74-106); PROTEIN TOTAL,TP 7.5 g/dL (6.4-8.2); SODIUM,NA 138 mmol/L (140-148)
[2023-05-30 22:18] LABS: ANION GAP 21.1 mmol/L (5.0-14.0); CREATINE KINASE,CK 4334 U/L (26-192)
[2023-05-30 22:19] LABS: CREATININE 3.8 mg/dL (0.6-1.0); POTASSIUM,K 6.1 mmol/L (3.6-5.2)
[2023-05-30 23:05] VITALS: BP 134/79; PULSE 95
[2023-05-30] MEDS ORDERED: Ondansetron 4 MG/2 ML SDV IV PRN (23:05)
[2023-05-30] MEDS ORDERED: LORazepam ORAL Concentrate 1MG/0.5ML U/D PO PRN (23:05)
[2023-05-30] MEDS: Morphine 10 MG/0.5 ML Oral Syringe PO PRN (23:15)
[2023-05-30 23:58] LABS: CORONAVIRUS COVID-19 NAA NEGATIVE (NEGATIVE); INFLUENZA A NAA NEGATIVE (NEGATIVE); INFLUENZA B NAA NEGATIVE (NEGATIVE); RESPIRATORY SYNCYTIAL VIR NAA NEGATIVE (NEGATIVE)
== END 2023-05-31 09:30 | disposition expired | DRG 951 ==
LOC: JP.ED 20:53 → JP.MS 22:25
PROVIDERS: ADMIT Registered Nurse; ATTEND Hospitalist
DX: Z51.5 Encounter for palliative care (principal); I61.9 Nontraumatic intracerebral hemorrhage, unspecified; Z66 Do not resuscitate; G43.909 Migraine, unspecified, not intractable, without status migrainosus; L89.309 Pressure ulcer of unspecified buttock, unspecified stage; I61.1 Nontraumatic intracerebral hemorrhage in hemisphere, cortical; K21.9 Gastro-esophageal reflux disease without esophagitis; L89.159 Pressure ulcer of sacral region, unspecified stage; E53.8 Deficiency of other specified B group vitamins; L89.899 Pressure ulcer of other site, unspecified stage; J45.909 Unspecified asthma, uncomplicated; E55.9 Vitamin D deficiency, unspecified; I10 Essential (primary) hypertension; H54.7 Unspecified visual loss; H40.9 Unspecified glaucoma; L40.9 Psoriasis, unspecified; Z88.0 Allergy status to penicillin; Z86.16 Personal history of COVID-19; Z79.82 Long term (current) use of aspirin; Z88.7 Allergy status to serum and vaccine; Z98.890 Other specified postprocedural states; Z79.899 Other long term (current) drug therapy; Z87.11 Personal history of peptic ulcer disease; Z88.1 Allergy status to other antibiotic agents; Z97.3 Presence of spectacles and contact lenses; Z87.440 Personal history of urinary (tract) infections; Z90.49 Acquired absence of other specified parts of digestive tract; Z88.8 Allergy status to other drugs, medicaments and biological substances
CPT/HCPCS: 0241U; 36415; 70450; 80053; 81001; 82550; 82803; 83605; 84484; 85025; 85610; 86140; 93005; 99223; 99238; 51702; 96361; 96374; 99285-25; A9270-GY; J2270; J7030